=== PATIENT | female | born 1975 | race Caucasian/White ===

== ENCOUNTER 2019-02-02 04:51 | Emergency (ER) | payer SELFPAY ==
[2019-02-02 04:52] VITALS: BP 127/93; PULSE 64; RESP 16; TEMP 36.8; O2SAT 97; BMI 27.4
--- NOTE | 2019-02-02 05:17 | ED.VISSUMM ---
- ER Visit Summary Date of Service: 02/02/19 Chief Complaint: Foreign body sensation and pain left eye History of Present Illness: The patient is a 43 F who presents with left eye pain. She initially had a foreign body sensation about 12 hours before presentation. She was working on her deck and using a saw yesterday. She went to bed when she woke up her pain and burning was worse. She also complains of light sensitivity. She was wearing contacts when she was using the soft. She currently has her contacts out and uses glasses. Physical Examination: Afebrile vitals unremarkable Eyelids were even everted no foreign body visualized on the left she does have some diffuse injection pupils are equally round reactive to light normal accommodation Extraocular motion intact without pain or palsy Anterior chamber deep and quiet Slit-lamp examination after tetracaine and fluorescein does show a small corneal abrasion at about the 2 o'clock position. Test Results: Slit-lamp examination as above Emergency Department Course and Treatment: Tetracaine and fluorescein were instilled in the left eye and slit lamp examination performed. She does have a small corneal abrasion. She was given gentamicin ophthalmic solution. She was advised that if symptoms are not improving to follow-up with ophthalmology. Patient discharged. Treatment Plan: [] Disposition: Discharge Impression: Corneal abrasion This note was generated with ar[employer] dictation software. It may contain incorrect words, spelling, and punctuation that were not noted in review of the chart prior to signing ED Disposition - Plan for ED Patient: Referrals: Rony Ling MD [Primary Care Provider] -
--- NOTE | 2019-02-02 05:20 | ED.DEP ---
ED Disposition - Plan for ED Patient: Instructions: ED Eye Injury Corneal Abrasion Referrals: Rony Ling MD [Primary Care Provider] - Jared Zambrano MD [STAFF PHYSICIAN] -
[2019-02-02] MEDS: Gentamicin Sulfate 1 OPTH.BTL 1 DRP LEFT EYE (05:23)
[2019-02-02] MEDS: Fluorescein 1 MG STRIP 1 STRIP LEFT EYE (05:24)
[2019-02-02] MEDS: Tetracaine 0.5% Ophthalmic Bottle 1 DRP LEFT EYE (05:25)
[2019-02-02 05:29] VITALS: BP 122/87; PULSE 68; RESP 16; O2SAT 97
== END 2019-02-02 05:30 | disposition home or self-care (01) ==
PROVIDERS: Emergency Provider Emergency Medicine
DX: S05.02XA Injury of conjunctiva and corneal abrasion without foreign body, left eye, initial encounter (principal); X58.XXXA Exposure to other specified factors, initial encounter; Y93.9 Activity, unspecified; Y92.9 Unspecified place or not applicable; Y99.9 Unspecified external cause status
CPT/HCPCS: 99282